=== PATIENT | female | born 1990 | race Caucasian/White ===

== ENCOUNTER 2016-07-10 20:22 | Emergency (ER) | payer OTHER ==
[~2016-07-10] VITALS: Ht 175.3 cm; Wt 113.4 kg
[2016-07-10] MEDS ORDERED: ORPHENADRINE CITRATE 60 MG/2 ML VIAL. IM ONE (20:45)
[2016-07-10] MEDS ORDERED: KETOROLAC TROMETHAMINE 60 MG/2 ML SYRINGE. IM ONE (20:45)
--- NOTE | 2016-07-10 20:54 | PHYS DOC ---
Past Medical History Past Medical History: Bronchitis, Pneumonia Past Surgical History: Cholecystectomy, , Tonsillectomy, Other Additional Past Surgical Histo: lymph node removal Alcohol Use: Occasionally Drug Use: None Adult General Chief Complaint Chief Complaint: LOWER BACK PAIN OR INJURY [facility] HPI Patient is a 26 year old female who presents emergency room with a complaint of low back pain for approximately 3-4 hours. Patient states this began when she was carrying groceries into the home. Patient states that she bent over when she felt "something slipped" and lower back and she continues to have low back pain that does not radiate. She denies saddle anesthesia or incontinence. Patient denies any history of spinal column injuries or spinal cord denies any history of bone forming disorders. Patient denies any previous surgeries to her back. Review of Systems Review of Systems Constitutional: Denies fever or chills [] Eyes: Denies change in visual acuity, redness, or eye pain [] HENT: Denies nasal congestion or sore throat [] Respiratory: Denies cough or shortness of breath [] Cardiovascular: No additional information not addressed in HPI [] GI: Denies abdominal pain, nausea, vomiting, bloody stools or diarrhea [] : Denies dysuria or hematuria [] Musculoskeletal: Denies back pain or joint pain [] Integument: Denies rash or skin lesions [] Neurologic: Denies headache, focal weakness or sensory changes [] Endocrine: Denies polyuria or polydipsia [] Current Medications Current Medications Current Medications Medications (Trade) Dose Ordered Sig/[facility] Start Time Stop Time Status Last Admin Dose Admin Ketorolac Tromethamine (Toradol Im) 60 mg 1X ONCE 07/10/16 20:45 07/10/16 20:46 DC 07/10/16 20:59 60 MG Orphenadrine Citrate (Norflex) 60 mg 1X ONCE 07/10/16 20:45 07/10/16 20:46 DC 07/10/16 20:59 60 MG Allergies Allergies Allergies Coded Allergies Type Severity Reaction Last Updated Verified latex Allergy Intermediate hives, itching 08/18/15 Yes tramadol Adverse Reaction Intermediate headache, vomiting. 08/18/15 Yes Physical Exam Physical Exam Constitutional: Well developed, well nourished, mild distress, non-toxic appearance. Patient is obese neuromuscular development. HENT: Normocephalic, atraumatic, bilateral external ears normal, oropharynx moist, no oral exudates, nose normal. [] Eyes: PERRLA, EOMI, conjunctiva normal, no discharge. [] Neck: Normal range of motion, no tenderness, supple, no stridor. [] Cardiovascular:Heart rate regular rhythm, no murmur [] Lungs & Thorax: Bilateral breath sounds clear to auscultation [] Abdomen: Bowel sounds normal, soft, no tenderness, no masses, no pulsatile masses. [] Skin: Warm, dry, no erythema, no rash. [] Back: Back is normal in appearance. There is focal, midline tenderness to palpation the level of L4-L5 and bilateral SI joints without palpable defect, deformity or spasm. Extremities: No tenderness, no cyanosis, no clubbing, ROM intact, no edema. [] Neurologic: Alert and oriented X 3, normal motor function, normal sensory function, no focal deficits noted. [] Psychologic: Affect normal, judgement normal, mood normal. [] Current Patient Data Vital Signs Vital Signs Date Time Temp Pulse Resp B/P Pulse Ox O2 Delivery O2 Flow Rate FiO2 07/10/16 21:05 100 16 96 Room Air EKG EKG [] Radiology/Procedures Radiology/Procedures 3 views of patient's lumbosacral spine were performed with adequate technique. There is no evidence of an acute process/malalignment/compression fracture. Patient does have mild scoliosis. Course & Med Decision Making Course & Med Decision Making Pertinent Labs and Imaging studies reviewed. (See chart for details) [] Dragon Disclaimer Dragon Disclaimer This electronic medical record was generated, in whole or in part, using a voice recognition dictation system. Departure Departure Impression: Primary Impression: Lumbosacral strain Disposition: 01 HOME, SELF-CARE Condition: GOOD Referrals: NO PCP (PCP) Patient Instructions: Lumbosacral Strain Additional Instructions: 1. The x-rays of your back show no broken bones or decreased space in between the vertebrae to indicate loss of disc height. 2. Review the discharge instructions provided for self-care and reasons to return the emergency room. 3. Take the medication as prescribed. 4. Use the pamphlet provided for assistance in finding a primary care doctor in which to provide follow-up care. You can call Tuesday to schedule follow-up appointment. Scripts Orphenadrine Citrate 100 Mg Tablet.er100 Mg PO twice a day muscle relaxer #14 Prov:ALEXANDER MAGDALENO 07/10/16 Hydrocodone/Apap 5-325 (Advance 5-325 Tablet)1 Each Tablet1 Tab PO PRN Q6HRS PRN breakthrough pain #14 TAB Prov:ALEXANDER MAGDALENO 07/10/16 Naproxen Sodium (Anaprox Ds)550 Mg [id number] Mg PO twice a day #20 Prov:ALEXANDER MAGDALENO 07/10/16 ALEXANDER MAGDALENO Jul 10, 2016 20:54
[2016-07-10 21:05] VITALS: BP 177/95
[2016-07-10] MEDS ORDERED: ORPH100T PO (21:43)
[2016-07-10] MEDS ORDERED: NAPR550T PO (21:43)
[2016-07-10] MEDS ORDERED: HYDR-971 PO (21:43)
--- NOTE | 2016-07-11 08:19 | RAD ---
Indication low back pain. Sudden onset. AP and lateral views of the lumbar spine were obtained as well as a coned view targeted to the lumbosacral junction. Clips are noted in the gallbladder fossa. Vertebral height alignment and disc spaces are unremarkable. An acute finding is not seen. Significant degenerative changes are not apparent. Mild scoliosis is noted. IMPRESSION: Mild scoliosis otherwise unremarkable plain film examination of the lumbar spine
== END 2016-07-10 21:56 | disposition home or self-care (01) ==
LOC: ER 20:22
DX: S39.012A Strain of muscle, fascia and tendon of lower back, initial encounter (principal); Z87.01 Personal history of pneumonia (recurrent); Z88.6 Allergy status to analgesic agent; Z91.040 Latex allergy status; X50.0XXA Overexertion from strenuous movement or load, initial encounter; Y93.89 Activity, other specified; Y92.89 Other specified places as the place of occurrence of the external cause; Y99.8 Other external cause status
CPT/HCPCS: 72100; 96372; 99284; J1885; J2360

== ENCOUNTER 2017-09-04 20:10 | Emergency (ER) | payer OTHER | END 2017-09-04 22:11 | disposition home or self-care (01) | LOC: ER 22:11 | DX: S93.602A Unspecified sprain of left foot, initial encounter (principal); Z88.6 Allergy status to analgesic agent; Z91.040 Latex allergy status; W08.XXXA Fall from other furniture, initial encounter; Y93.89 Activity, other specified; Y99.8 Other external cause status; Y92.89 Other specified places as the place of occurrence of the external cause | CPT/HCPCS: 73630; 99284 ==

== ENCOUNTER 2019-04-06 09:06 | Emergency (ER) | payer SELFPAY ==
[~2019-04-06] VITALS: Ht 172.7 cm; Wt 122.5 kg
[~2019-04-06 09:06] MED LIST: HYDR-3164 PO; NAPR-682 PO; ORPH100T PO
[2019-04-06 09:21] VITALS: BP 156/99
--- NOTE | 2019-04-06 09:38 | PHYS DOC ---
Past Medical History Past Medical History: Anxiety, Bronchitis, Depression, Hypertension, Pneumonia, Other Additional Past Medical Histor: weak heart valve, low back pain Past Surgical History: Cholecystectomy, , Tonsillectomy, Other Additional Past Surgical Histo: lymph node removal Alcohol Use: Occasionally Drug Use: None Adult General Chief Complaint Chief Complaint: HAND PROBLEM [facility] HPI Patient is a 29 year old female who presents to the emergency department with complaints of right hand pain after she punched a wall made of drywall yesterday. Patient states that her hand did not penetrate the drywall. She currently rates her pain a 4 out of 10 on the pain scale, she states that the pain increases to a 6 out of 10 with movement. She denies any alleviating factors other than rest. She states she feels like her fifth knuckle pops when she bends her hand. Patient denies any decreased range of motion or pain in her wrist. She denies any numbness, tingling, or bruising. All other ROS is neg unless otherwise noted in HPI. Review of Systems Review of Systems See Above Allergies Allergies Allergies Coded Allergies Type Severity Reaction Last Updated Verified latex Allergy Intermediate hives, itching 08/18/15 Yes tramadol Adverse Reaction Intermediate headache, vomiting. 08/18/15 Yes Physical Exam Physical Exam See Above Constitutional: Well developed, well nourished, no acute distress, non-toxic appearance, obese [] HENT: Normocephalic, atraumatic, bilateral external ears normal, nose normal. [] Eyes: PERRLA, EOMI, conjunctiva normal, no discharge. [] Neck: Normal range of motion, no stridor. [] Cardiovascular:Heart rate regular rhythm, no murmur [] Lungs & Thorax: Respirations even and unlabored, no retractions, no respiratory distress Skin: Warm, dry, no erythema, no rash, no bruising. [] Extremities: R hand lateral tenderness at the base of the 4th and 5th me tacarpals, no obvious deformity, no cyanosis, no clubbing, ROM intact, no edema. [] Neurologic: Alert and oriented X 3, no focal deficits noted. [] Psychologic: Affect normal, judgement normal, mood normal. [] Current Patient Data Vital Signs Vital Signs Date Time Temp Pulse Resp B/P (MAP) Pulse Ox O2 Delivery O2 Flow Rate FiO2 04/06/19 09:21 97.8 104 18 156/99 (118) 96 Room Air 97.8 EKG EKG [] Radiology/Procedures Radiology/Procedures PROCEDURE: HAND RIGHT 3V Examination: HAND RIGHT 3V History: Right ulnar region pain after punching a wall yesterday. Comparison/Correlation: None Findings: Total of 3 images of the right hand were obtained. Joint spaces are normal. No acute fracture definitely seen. Nonunion of the ulnar styloid is present and this is well-corticated and there is no soft tissue swelling. No degenerative change. 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 Correlate with previous history of trauma. No findings definite for acute process.[] Course & Med Decision Making Course & Med Decision Making Pertinent Labs and Imaging studies reviewed. (See chart for details) [] Dragon Disclaimer Dragon Disclaimer This electronic medical record was generated, in whole or in part, using a voice recognition dictation system. Departure Departure Impression: Primary Impression: Right hand pain Disposition: HOME, SELF-CARE Condition: STABLE Referrals: ALLISON TIJERINA PA-C (PCP) Patient Instructions: Hand Injuries, [id number] Additional Instructions: Tylenol or ibuprofen as needed for pain. Recommend application of ice, elevation, and rest of affected extremity. Wear the khurram wrap that was placed as needed for comfort. Follow up with your primary care doctor if symptoms persist. Return to the ER if your symptoms worsen. Splinting Splinting : Location: R hand Pre-Made Type: khurram wrap Splint: Pre-Proc Neuro Vasc Exam: normal Post-Proc Neuro Vasc Exam: normal, unchanged from pre-exam GERSON BOYCE APRN Apr 06, 2019 09:38
--- NOTE | 2019-04-06 09:51 | RAD ---
Examination: HAND RIGHT 3V History: Right ulnar region pain after punching a wall yesterday. Comparison/Correlation: None Findings: Total of 3 images of the right hand were obtained. Joint spaces are normal. No acute fracture definitely seen. Nonunion of the ulnar styloid is present and this is well-corticated and there is no soft tissue swelling. No degenerative change. 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 Correlate with previous history of trauma. No findings definite for acute process. Electronically signed by: Harpreet Geronimo MD (04/06/2019 9:48 AM) [facility]
== END 2019-04-06 10:22 | disposition home or self-care (01) ==
LOC: ER 09:06
DX: M79.641 Pain in right hand (principal); F41.9 Anxiety disorder, unspecified; I10 Essential (primary) hypertension; Z90.49 Acquired absence of other specified parts of digestive tract; Z90.89 Acquired absence of other organs; Z88.5 Allergy status to narcotic agent; Z91.040 Latex allergy status
CPT/HCPCS: 73130; 99284